=== PATIENT | male | born 1965 ===

== ENCOUNTER 2016-10-11 13:30 | Emergency (ER) | payer BC ==
[2016-10-11 13:48] VITALS: BP 123/84
--- NOTE | 2016-10-11 14:21 | UC ---
Cardiac HPI - HPI Summary HPI Summary: The patient comes in today for: 1. Chest pressure: Onset: 2 days. Palliative/provocative: Nothing makes it better or worse. Quality: Pressure. Region: Retrosternal with no radiation. Severity: 05/15 Time: Comes and goes. Associated symptoms: CAD risk factors: Previous disease: None. HTN: (+). DM: (-). Family history: (-). Smoker: (-). Cholesterol: (?). * - History of Current Complaint Chief Complaint: UCGeneralIllness Stated Complaint: ANXIETY Time Seen by Provider: 10/11/16 14:12 Hx Obtained From: Patient, Family/Lab Director - Allergy/Home Medications Allergies/Adverse Reactions: Allergies Allergy/AdvReac Type Severity Reaction Status Date / Time No Known Allergies Allergy Verified 10/11/16 13:41 Home Medications: Home Medications Fluticasone-Salmeterol 100-50* [Advair Diskus 100-50*] 1 puff INH DAILY [History Confirmed 10/11/16] Lisinopril TAB* [Prinivil TAB*] 10 mg PO DAILY 10/11/16 [History Confirmed 10/11] diPHENhydraMINE PO* [Benadryl PO 25 MG TAB*] 25 mg PO BEDTIME PRN 10/11/16 [ History Confirmed 10/11/16] PMH/Surg Hx/FS Hx/Imm Hx Previously Healthy: Yes Cardiovascular History: Hypertension Respiratory History: Asthma Psychological History: Anxiety - Surgical History Surgical History: None - Family History Known Family History: Positive: Cardiac Disease Negative: Hypertension, Diabetes - Social History Occupation: Employed Full-time Alcohol Use: None Substance Use Type: None Smoking Status (MU): Never Smoked Tobacco Review of Systems Constitutional: Negative Skin: Negative Eyes: Negative ENT: Other - DRy mouth Respiratory: Negative Cardiovascular: Chest Pain Gastrointestinal: Negative Genitourinary: Other - Recently he has been urinating more often He has some weight loss, but it is intentional. NO polyphagia. + polydipsia. All Other Systems Reviewed And Are Negative: Yes Physical Exam Triage Information Reviewed: Yes Appearance: Well-Appearing, No Pain Distress, Well-Nourished, Other: - He is slightly anxious looking. Vital Signs: Initial Vital Signs Temp 99.8 F 10/11/16 13:42 Pulse 92 10/11/16 13:42 Resp 20 10/11/16 13:42 BP 123/84 10/11/16 13:42 Pulse Ox 100 10/11/16 13:42 Vital Signs Reviewed: Yes Eyes: Positive: Conjunctiva Clear. Negative: Discharge ENT: Positive: Hearing grossly normal. Negative: Pharyngeal erythema, Nasal congestion, Nasal drainage, TM bulging, TM dull, TM red, Tonsillar swelling, Tonsillar exudate Dental: Negative: Gross Decay/Caries @, Dental Fracture @ Neck: Positive: Supple, Nontender, No Lymphadenopathy. Negative: Nuchal Rigidity Respiratory: Positive: Lungs clear, No respiratory distress, No accessory muscle use. Negative: Crackles, Wheezing Cardiovascular: Positive: RRR, No Murmur Abdomen Description: Positive: Nontender, No Organomegaly, Soft. Negative: Distended, Guarding Musculoskeletal: Positive: Strength Intact, ROM Intact Neurological: Positive: Alert, Muscle Tone Normal Psychological: Positive: Age Appropriate Behavior, Consolable Skin: Negative: rashes, breakdown Diagnostics - Laboratory Diagnostic Studies Completed/Ordered: EKG: Rate: 72. Rhythm: Sinus. [place]cl[place]: 0 degrees. Ectopy: None. Acute changes: None. - Assessment/Plan Course Of Treatment: Patient and his were told that we are not able to rule out a KS here even with a normal EKG. Based on this, my recommendation is for the patient to go to [facility] for evaluation and treatment of his chest pressure/anxiety. He and his agree. Assuming that this is not cardiac, he agreed to trying lorazepam as needed. - Clinical Impression Provider Diagnoses: Chest pressure. Anxiety Discharge - Discharge Plan Condition: Stable Disposition: AGAINST MEDICAL ADVICE Patient Education Materials: Anxiety (ED) Referrals: Sandy Galvez NP [Primary Care Provider] - 1 Week (Please see your primary care provider in about one two weeks to see how well you are doing. If you get worse, please be seen sooner.) Additional Instructions: Patient is going to the [facility] ER for chest pressure evaluation.
[2016-10-11] MEDS ORDERED: Aspirin Low Dose CHEW TAB* 81 MG PO ONE (14:50)
== END 2016-10-11 14:57 | disposition left against medical advice (07) ==
LOC: UCCORT 13:30
DX: R07.89 Other chest pain (principal); F41.9 Anxiety disorder, unspecified
CPT/HCPCS: 93005; 99203; A9270-GY; G0463